=== PATIENT | male | born 1985 | race Caucasian/White ===

== ENCOUNTER 2023-05-16 07:08 | Emergency (ER) | payer MEDICAID ==
[~2023-05-16] VITALS: Ht 172.7 cm; Wt 102.1 kg
[2023-05-16 07:25] VITALS: BP_SYST 166; PULSE 113; RESP 17; TEMP 97.7; O2SAT 96
[2023-05-16] MEDS ORDERED: ceFAZolin SODIUM 2 GM VIAL IM ONE (07:30)
[2023-05-16] MEDS ORDERED: KETOROLAC TROMETHAMINE 60 MG/2 ML VIAL IM ONE (07:30)
[2023-05-16] MEDS ORDERED: LIDOCAINE 1% 10 MG/ML, 20 ML MDV INJ ONE (07:30)
[2023-05-16] MEDS ORDERED: HYDR25TA4 PO (07:37)
[2023-05-16] MEDS ORDERED: cloNIDine HCL 0.1 MG TABLET PO ONE (07:45)
[2023-05-16 07:57] LABS: BASOPHILS % (AUTO) 0.5 % (0.0-2.0); EOSINOPHILS % (AUTO) 0.6 % (0.0-4.0); HEMATOCRIT 43.4 % (36-54); HEMOGLOBIN 14.8 g/dL (14.0-18.0); LYMPHOCYTES # (AUTO) 1.4 K/uL (1.0-5.5); LYMPHOCYTES % (AUTO) 18.8 % (20.5-51.5); MEAN CORPUSCULAR HEMOGLOBIN 29 pg (27-31); MEAN CORPUSCULAR HGB CONC 34 % (32-36); MEAN CORPUSCULAR VOLUME 86 fL (79.0-98.0); MONOCYTES # (AUTO) 0.4 K/uL (0.0-1.0); MONOCYTES % (AUTO) 5.2 % (1.7-9.3); NEUTROPHILS # (AUTO) 5.5 K/uL (1.8-7.7); NEUTROPHILS % (AUTO) 74.9 % (40.0-70.0); PLATELET COUNT (AUTO) 217 K/uL (130-430); RED BLOOD CELL COUNT(AUTO) 5.06 MIL/uL (4.2-6.2); WHITE BLOOD COUNT (AUTO) 7.3 K/uL (4.8-10.8)
[2023-05-16 08:22] LABS: ANION GAP 8 (5-15); CALCIUM 9.1 mg/dL (8.4-11.0); CHLORIDE 100 mmol/L (98-107); CREATININE 0.93 mg/dL (0.55-1.30); GFR AFRICAN AMERICAN 119 mL/min (>90); GLUCOSE 125 mg/dL (74-106); UREA NITROGEN, BLOOD 24 mg/dL (8-21)
[2023-05-16 08:29] LABS: ALANINE AMINOTRANSFERASE 55 U/L (12-78); ALBUMIN 4.3 g/dL (3.4-4.8); ASPARTATE AMINOTRANSFERASE 26 U/L (10-37); TOTAL BILIRUBIN 0.5 mg/dL (0.0-1.0)
[2023-05-16 10:23] VITALS: BP_SYST 157; PULSE 84; RESP 18; TEMP 98.9; O2SAT 96
== END 2023-05-16 10:20 | disposition home or self-care (01) ==
LOC: SED 07:08
DX: R07.9 Chest pain, unspecified (principal); R06.02 Shortness of breath; R42 Dizziness and giddiness; I10 Essential (primary) hypertension; Z79.899 Other long term (current) drug therapy
CPT/HCPCS: 36415; 71045; 80053; 83880; 84484; 85025; 99285